=== PATIENT | male | born 1955 | race African-American/Black ===

== ENCOUNTER 2020-03-20 14:34 | Inpatient (IN) | payer MEDICARE ==
[~2020-03-20] VITALS: Ht 182.9 cm; Wt 128.4 kg
[2020-03-20] MEDS ORDERED: LISI-648 PO (14:43)
[2020-03-20] MEDS ORDERED: FURO-152 PO (14:43)
[2020-03-20] MEDS ORDERED: LIP40 PO (14:43)
[2020-03-20 15:53] LABS: BASOPHILS % 0.9 % (0.0-2.0); HEMATOCRIT. 41.1 % (42.0-52.0); HEMOGLOBIN. 13.5 g/dL (14.0-18.0); LYMPHOCYTES % 16.4 % (20.0-50.0); MEAN CORPUSCULAR HEMOGLOBIN 31.5 pg (28.0-32.0); MEAN CORPUSCULAR VOLUME 96.2 fL (80.0-94.0); MEAN PLATELET VOLUME 8.3 fl (7.4-10.4); MONOCYTES % 9.8 % (2.0-8.0); NEUTROPHILS % 71.9 % (40.0-76.0); PLATELET 203 x1000/uL (130-400); RED BLOOD CELL COUNT 4.28 mill/uL (4.7-6.1); RED CELL DISTRIBUTION WIDTH 13.7 % (11.6-14.6)
[2020-03-20 15:58] LABS: CHLORIDE 110 mEq/L (98-107)
[2020-03-20 16:07] LABS: ETHANOL BLOOD < 10 mg/dL
[2020-03-20] MEDS ORDERED: SODIUM CHLORIDE 0.9% 1,000 ML IV ONE (17:00)
[2020-03-20] MEDS ORDERED: LEVETIRACETAM 500MG PREMIX 100 ML IV ONE (17:30)
[2020-03-20 21:15] VITALS: BP 121/60
[2020-03-20 21:16] LABS: CLARITY URINE CLEAR (CLEAR); COLOR URINE YELLOW (YELLOW); KETONES URINE NEGATIVE (NEGATIVE); LEUKOCYTE ESTERASE URINE NEGATIVE (NEGATIVE); NITRITE URINE NEGATIVE (NEGATIVE); OCCULT BLOOD URINE NEGATIVE (NEGATIVE); PROTEIN URINE TRACE (NEGATIVE); SPECIFIC GRAVITY URINE 1.023 (1.005-1.030); UROBILINOGEN URINE 0.2 E.U./dL (0.2-1.0)
[2020-03-20] MEDS ORDERED: POTA-79 PO (21:22)
[2020-03-20 21:32] LABS: *AMPHETAMINES SCREEN URINE NEGATIVE (NEGATIVE); *BARBITURATES SCREEN URINE NEGATIVE (NEGATIVE)
[2020-03-20 21:33] LABS: *BENZODIAZEPINES SCREEN URINE NEGATIVE (NEGATIVE); *COCAINE SCREEN URINE NEGATIVE (NEGATIVE); CANNABINOID URINE SCREEN NEGATIVE (NEGATIVE); METHADONE URINE SCREEN NEGATIVE (NEGATIVE); OPIATES URINE SCREEN NEGATIVE (NEGATIVE); PHENCYCLIDINE URINE SCREEN NEGATIVE (NEGATIVE)
[2020-03-20 22:24] VITALS: BP 121/60
[2020-03-20 23:06] VITALS: BP 121/60
[2020-03-21] VITALS: BP 103/57
[2020-03-21] MEDS ORDERED: GUAIFENESIN 200MG/10ML SUGAR FREE UDC PO PRN (03:30)
[2020-03-21] MEDS ORDERED: MAGNESIUM/ALUMINUM HYDROXIDE/SIMETHICONE 30ML UDC PO PRN (03:30)
[2020-03-21] MEDS ORDERED: ONDANSETRON HCL 4MG/2ML INJ IV PRN (03:30)
[2020-03-21] MEDS ORDERED: CLONIDINE 0.1MG TABLET PO PRN (03:30)
[2020-03-21] MEDS ORDERED: LORAZEPAM 2MG/ML CPJ IV PRN (03:30)
[2020-03-21] MEDS ORDERED: NITROGLYCERIN 0.4MG TABLET SL SL PRN (03:30)
[2020-03-21] MEDS ORDERED: ACETAMINOPHEN 325MG TABLET PO PRN ×2 (03:30)
[2020-03-21] MEDS ORDERED: LEVETIRACETAM 500 MG in SODIUM CHLORIDE 0.9% 100 ML IV SCH (03:30)
[2020-03-21 04:00] VITALS: BP 117/64
[2020-03-21] MEDS: LEVETIRACETAM 500MG PREMIX 100 ML IV SCH ×2 (05:05→21:25)
[2020-03-21 07:45] VITALS: BP 125/77
[2020-03-21 08:14] LABS: CHLORIDE 110 mEq/L (98-107)
[2020-03-21 08:22] LABS: CREATINE KINASE 587 IU/L (39-308); LDL CHOLESTEROL 26 mg/dL (5-100)
[2020-03-21 08:23] LABS: CREATINE KINASE MB FRACTION 1.9 ng/mL (0.5-3.6)
[2020-03-21 08:24] LABS: HDL CHOLESTEROL 32 mg/dL (40-59)
[2020-03-21] MEDS: ZINC SULFATE 220 MG ( 50 ) CAPSULE PO SCH (09:19)
[2020-03-21] MEDS: ASCORBIC ACID 500 MG TABLET PO SCH ×2 (09:20→21:25)
[2020-03-21] MEDS: ASPIRIN 325MG EC TABLET PO SCH (09:20)
[2020-03-21] MEDS: ENOXAPARIN 30MG/0.3ML SYR SUBCUT SCH ×2 (09:20→21:26)
[2020-03-21] MEDS: FAMOTIDINE 20MG TABLET PO SCH ×2 (09:22→21:25)
[2020-03-21 12:00] VITALS: BP 120/76
[2020-03-21 15:41] VITALS: BP 113/78
[2020-03-21 16:28] LABS: CREATINE KINASE 485 IU/L (39-308)
[2020-03-21 16:29] LABS: CREATINE KINASE MB FRACTION 1.8 ng/mL (0.5-3.6)
[2020-03-21 20:00] VITALS: BP 120/63
[2020-03-21] MEDS: ATORVASTATIN CALCIUM 40MG TABLET PO SCH (21:25)
[2020-03-22 00:03] VITALS: BP 120/60
[2020-03-22 04:00] VITALS: BP 107/76
[2020-03-22 06:00] LABS: BASOPHILS % 0.4 % (0.0-2.0); EOSINOPHILS % 2.6 % (0.0-5.0); HEMATOCRIT. 37.8 % (42.0-52.0); HEMOGLOBIN. 12.4 g/dL (14.0-18.0); MEAN CORPUSCULAR HEMOGLOBIN 31.5 pg (28.0-32.0); MEAN CORPUSCULAR VOLUME 95.9 fL (80.0-94.0); MEAN PLATELET VOLUME 7.9 fl (7.4-10.4); MONOCYTES % 11.4 % (2.0-8.0); NEUTROPHILS % 53.6 % (40.0-76.0); PLATELET 195 x1000/uL (130-400); RED BLOOD CELL COUNT 3.94 mill/uL (4.7-6.1); RED CELL DISTRIBUTION WIDTH 13.9 % (11.6-14.6)
[2020-03-22 06:03] LABS: CHLORIDE 112 mEq/L (98-107)
[2020-03-22 06:12] LABS: PHOSPHORUS 2.3 mg/dL (2.5-4.9)
[2020-03-22 08:00] VITALS: BP 152/80
[2020-03-22] MEDS: ASCORBIC ACID 500 MG TABLET PO SCH ×2 (09:48→21:13)
[2020-03-22] MEDS: LEVETIRACETAM 500MG PREMIX 100 ML IV SCH ×2 (09:48→21:12)
[2020-03-22] MEDS: ASPIRIN 325MG EC TABLET PO SCH (09:49)
[2020-03-22] MEDS: ZINC SULFATE 220 MG ( 50 ) CAPSULE PO SCH (09:49)
[2020-03-22] MEDS: FAMOTIDINE 20MG TABLET PO SCH ×2 (09:49→21:12)
[2020-03-22] MEDS: ENOXAPARIN 30MG/0.3ML SYR SUBCUT SCH ×2 (09:50→21:13)
[2020-03-22 12:00] VITALS: BP 143/80
[2020-03-22 16:00] VITALS: BP 131/78
[2020-03-22 20:58] VITALS: BP 135/63
[2020-03-22] MEDS: ATORVASTATIN CALCIUM 40MG TABLET PO SCH (21:12)
[2020-03-23] VITALS: BP 126/72
[2020-03-23 03:58] VITALS: BP 118/74
[2020-03-23 08:00] VITALS: BP 135/80
[2020-03-23] MEDS: LEVETIRACETAM 500MG PREMIX 100 ML IV SCH (08:36)
[2020-03-23] MEDS: FAMOTIDINE 20MG TABLET PO SCH (08:37)
[2020-03-23] MEDS: ASCORBIC ACID 500 MG TABLET PO SCH (08:37)
[2020-03-23] MEDS: ENOXAPARIN 30MG/0.3ML SYR SUBCUT SCH (08:37)
[2020-03-23] MEDS: ZINC SULFATE 220 MG ( 50 ) CAPSULE PO SCH (08:37)
[2020-03-23] MEDS: ASPIRIN 325MG EC TABLET PO SCH (08:37)
[2020-03-23 12:00] VITALS: BP 132/82
[2020-03-23] MEDS ORDERED: KEPP500 MT (12:54)
[2020-03-23] MEDS ORDERED: FAMO-135 MT (12:55)
[2020-03-23] MEDS ORDERED: CLOP75TA4 PO (12:55)
[2020-03-23 12:59] VITALS: BP 135/80
== END 2020-03-23 14:45 | disposition home health service (06) | DRG 100 ==
LOC: ER 14:55 → EDBEDREQTM 17:34 → EDBEDREQ 17:34 → ENRESERV 20:04 → 6WST 21:12
PROVIDERS: ADMIT Internal Medicine; ATTEND Internal Medicine
DX: G40.89 Other seizures (principal); N17.0 Acute kidney failure with tubular necrosis; G92 Toxic encephalopathy; E44.0 Moderate protein-calorie malnutrition; Z86.73 Personal history of transient ischemic attack (TIA), and cerebral infarction without residual deficits; I10 Essential (primary) hypertension; E66.9 Obesity, unspecified; E78.00 Pure hypercholesterolemia, unspecified; Z68.38 Body mass index [BMI] 38.0-38.9, adult
CPT/HCPCS: 36415; 70551; 71045; 80053; 80061; 80305; 80320; 81003; 82550; 82553; 83036; 83735; 84100; 84484; 85025; 93005; 93306; 93970; 96365; 97116; 97162; 97166; 99285; J1650; J1953; J7030; G0480

== ENCOUNTER 2020-07-30 01:18 | Emergency (ER) | payer MEDICARE, OTHER ==
[~2020-07-30] VITALS: Ht 195.6 cm; Wt 141.0 kg
[~2020-07-30 01:18] MED LIST: CLOP75TA4 PO; FAMO-135 MT; FURO-152 PO; KEPP500 MT; LIP40 PO; LISI-648 PO; POTA-79 PO
[2020-07-30] MEDS ORDERED: LEVETIRACETAM 1000MG PREMIX 100 ML IV ONE (01:45)
[2020-07-30 01:57] LABS: BASOPHILS % 0.4 % (0.0-2.0); EOSINOPHILS % 1.8 % (0.0-5.0); HEMATOCRIT. 42.8 % (42.0-52.0); HEMOGLOBIN. 14.4 g/dL (14.0-18.0); LYMPHOCYTES % 21.2 % (20.0-50.0); MEAN CORPUSCULAR HEMOGLOBIN 31.9 pg (28.0-32.0); MEAN CORPUSCULAR VOLUME 94.7 fL (80.0-94.0); MEAN PLATELET VOLUME 7.8 fl (7.4-10.4); MONOCYTES % 8.8 % (2.0-8.0); NEUTROPHILS % 67.8 % (40.0-76.0); PLATELET 166 x1000/uL (130-400); RED BLOOD CELL COUNT 4.52 mill/uL (4.7-6.1); RED CELL DISTRIBUTION WIDTH 14.3 % (11.6-14.6)
[2020-07-30 02:02] LABS: CHLORIDE 108 mEq/L (98-107)
[2020-07-30 02:07] LABS: ETHANOL BLOOD < 10 mg/dL
[2020-07-30 02:12] LABS: CARBAMAZEPINE < 0.5 ug/mL (4-12)
[2020-07-30 02:15] LABS: PHENOBARBITAL < 2.1 ug/mL (15.0-40.0); VALPROIC ACID < 3.0 ug/mL (50-100)
[2020-07-30] MEDS ORDERED: ASPIRIN 325MG EC TABLET PO ONE (03:00)
[2020-07-30 03:34] LABS: CLARITY URINE CLEAR (CLEAR); COLOR URINE YELLOW (YELLOW); KETONES URINE NEGATIVE (NEGATIVE); LEUKOCYTE ESTERASE URINE NEGATIVE (NEGATIVE); NITRITE URINE NEGATIVE (NEGATIVE); OCCULT BLOOD URINE NEGATIVE (NEGATIVE); PROTEIN URINE 2+ (NEGATIVE); SPECIFIC GRAVITY URINE 1.023 (1.005-1.030); UROBILINOGEN URINE 0.2 E.U./dL (0.2-1.0)
[2020-07-30 03:43] LABS: *BARBITURATES SCREEN URINE NEGATIVE (NEGATIVE); *BENZODIAZEPINES SCREEN URINE NEGATIVE (NEGATIVE)
[2020-07-30 03:44] LABS: *AMPHETAMINES SCREEN URINE NEGATIVE (NEGATIVE); *COCAINE SCREEN URINE PRESUMTIVE POSITIVE (NEGATIVE); CANNABINOID URINE SCREEN NEGATIVE (NEGATIVE); METHADONE URINE SCREEN NEGATIVE (NEGATIVE); OPIATES URINE SCREEN NEGATIVE (NEGATIVE); PHENCYCLIDINE URINE SCREEN NEGATIVE (NEGATIVE)
[2020-07-30 04:55] VITALS: BP 118/71
== END 2020-07-30 05:03 | disposition short-term general hospital (02) ==
LOC: ER 01:18
DX: R56.9 Unspecified convulsions (principal); I63.9 Cerebral infarction, unspecified; F14.10 Cocaine abuse, uncomplicated; I10 Essential (primary) hypertension; Z79.899 Other long term (current) drug therapy
CPT/HCPCS: 36415; 70450; 80053; 80156; 80165; 80184; 80185; 80305; 80320; 81003; 82962; 85025; 93005; 96365; 99285; J1953; G0480

== ENCOUNTER 2020-08-06 11:09 | Emergency (ER) | payer OTHER ==
[~2020-08-06] VITALS: Ht 193 cm; Wt 136.0 kg
[2020-08-06] MEDS ORDERED: SODIUM CHLORIDE 0.9% 1,000 ML IV ONE (13:30)
[2020-08-06] MEDS ORDERED: LEVETIRACETAM 500MG PREMIX 100 ML IV ONE (13:30)
[2020-08-06 14:24] LABS: BASOPHILS % 0.3 % (0.0-2.0); EOSINOPHILS % 0.8 % (0.0-5.0); HEMATOCRIT. 41.3 % (42.0-52.0); HEMOGLOBIN. 13.8 g/dL (14.0-18.0); LYMPHOCYTES % 17.2 % (20.0-50.0); MEAN CORPUSCULAR HEMOGLOBIN 31.8 pg (28.0-32.0); MEAN CORPUSCULAR VOLUME 95.5 fL (80.0-94.0); MEAN PLATELET VOLUME 7.9 fl (7.4-10.4); MONOCYTES % 9.2 % (2.0-8.0); NEUTROPHILS % 72.5 % (40.0-76.0); PLATELET 152 x1000/uL (130-400); RED BLOOD CELL COUNT 4.32 mill/uL (4.7-6.1); RED CELL DISTRIBUTION WIDTH 14.4 % (11.6-14.6)
[2020-08-06 14:31] LABS: CHLORIDE 108 mEq/L (98-107)
[2020-08-06 14:37] LABS: ETHANOL BLOOD < 10 mg/dL
[2020-08-06 14:44] LABS: CARBAMAZEPINE < 0.5 ug/mL (4-12); PHENOBARBITAL < 2.1 ug/mL (15.0-40.0); VALPROIC ACID < 3.0 ug/mL (50-100)
[2020-08-06 16:00] VITALS: BP 128/66
== END 2020-08-06 17:42 | disposition home or self-care (01) ==
LOC: ER 11:18
DX: R56.9 Unspecified convulsions (principal); I10 Essential (primary) hypertension; Z86.73 Personal history of transient ischemic attack (TIA), and cerebral infarction without residual deficits; Z79.899 Other long term (current) drug therapy
CPT/HCPCS: 36415; 71045; 80053; 80156; 80165; 80184; 80185; 80320; 85025; 93005; 93970; 96365; 96366; 99285; J1953; J7030; G0480

== ENCOUNTER 2020-09-07 11:20 | Emergency (ER) | payer OTHER ==
[~2020-09-07] VITALS: Ht 188 cm; Wt 127.0 kg
[~2020-09-07 11:20] MED LIST changes: +CLOP-31 PO; -CLOP75TA4 PO
[2020-09-07 11:22] VITALS: BP 124/64
[2020-09-07] MEDS ORDERED: LEVETIRACETAM 500MG TABLET PO NR (12:00)
[2020-09-07 12:49] LABS: BASOPHILS % 0.5 % (0.0-2.0); EOSINOPHILS % 1.7 % (0.0-5.0); HEMOGLOBIN. 13.5 g/dL (14.0-18.0); LYMPHOCYTES % 24.1 % (20.0-50.0); MEAN CORPUSCULAR HEMOGLOBIN 31.3 pg (28.0-32.0); MEAN CORPUSCULAR VOLUME 94.9 fL (80.0-94.0); MEAN PLATELET VOLUME 7.6 fl (7.4-10.4); MONOCYTES % 11.6 % (2.0-8.0); NEUTROPHILS % 62.1 % (40.0-76.0); PLATELET 157 x1000/uL (130-400); RED BLOOD CELL COUNT 4.32 mill/uL (4.7-6.1); RED CELL DISTRIBUTION WIDTH 14.1 % (11.6-14.6)
[2020-09-07 12:51] LABS: CLARITY URINE CLEAR (CLEAR); COLOR URINE YELLOW (YELLOW); KETONES URINE NEGATIVE (NEGATIVE); LEUKOCYTE ESTERASE URINE NEGATIVE (NEGATIVE); NITRITE URINE NEGATIVE (NEGATIVE); OCCULT BLOOD URINE NEGATIVE (NEGATIVE); PROTEIN URINE NEGATIVE (NEGATIVE); SPECIFIC GRAVITY URINE 1.021 (1.005-1.030); UROBILINOGEN URINE 0.2 E.U./dL (0.2-1.0)
[2020-09-07 12:55] LABS: CHLORIDE 110 mEq/L (98-107)
[2020-09-07 12:58] LABS: ETHANOL BLOOD < 10 mg/dL
[2020-09-07 13:15] LABS: *AMPHETAMINES SCREEN URINE NEGATIVE (NEGATIVE); *BARBITURATES SCREEN URINE NEGATIVE (NEGATIVE); *BENZODIAZEPINES SCREEN URINE NEGATIVE (NEGATIVE); *COCAINE SCREEN URINE NEGATIVE (NEGATIVE)
[2020-09-07 13:16] LABS: METHADONE URINE SCREEN NEGATIVE (NEGATIVE); OPIATES URINE SCREEN NEGATIVE (NEGATIVE); PHENCYCLIDINE URINE SCREEN NEGATIVE (NEGATIVE)
[2020-09-07 13:18] LABS: CANNABINOID URINE SCREEN NEGATIVE (NEGATIVE)
== END 2020-09-07 15:46 | disposition home or self-care (01) ==
LOC: ER 11:20
DX: G40.909 Epilepsy, unspecified, not intractable, without status epilepticus (principal)
CPT/HCPCS: 36415; 71045; 80053; 80305; 80320; 81003; 85025; 93005; 99285; G0480

== ENCOUNTER 2020-10-08 09:17 | Emergency (ER) | payer OTHER ==
[~2020-10-08] VITALS: Ht 190.5 cm; Wt 131.0 kg
[2020-10-08] MEDS ORDERED: SODIUM CHLORIDE 0.9% 1,000 ML IV ONE (10:15)
[2020-10-08 10:24] LABS: BASOPHILS % 0.8 % (0.0-2.0); HEMATOCRIT. 43.1 % (42.0-52.0); HEMOGLOBIN. 14.2 g/dL (14.0-18.0); LYMPHOCYTES % 20.9 % (20.0-50.0); MEAN CORPUSCULAR HEMOGLOBIN 31.3 pg (28.0-32.0); MEAN CORPUSCULAR VOLUME 94.7 fL (80.0-94.0); MEAN PLATELET VOLUME 7.6 fl (7.4-10.4); MONOCYTES % 11.6 % (2.0-8.0); NEUTROPHILS % 65.7 % (40.0-76.0); PLATELET 184 x1000/uL (130-400); RED BLOOD CELL COUNT 4.55 mill/uL (4.7-6.1); RED CELL DISTRIBUTION WIDTH 13.8 % (11.6-14.6)
[2020-10-08 10:30] LABS: CHLORIDE 108 mEq/L (98-107)
[2020-10-08 10:34] LABS: ETHANOL BLOOD < 10 mg/dL
[2020-10-08 10:40] LABS: CARBAMAZEPINE < 0.5 ug/mL (4-12); PHENOBARBITAL < 2.1 ug/mL (15.0-40.0); VALPROIC ACID < 3.0 ug/mL (50-100)
[2020-10-08 11:01] LABS: CLARITY URINE CLEAR (CLEAR); COLOR URINE YELLOW (YELLOW); KETONES URINE NEGATIVE (NEGATIVE); LEUKOCYTE ESTERASE URINE NEGATIVE (NEGATIVE); NITRITE URINE NEGATIVE (NEGATIVE); OCCULT BLOOD URINE NEGATIVE (NEGATIVE); PROTEIN URINE NEGATIVE (NEGATIVE); SPECIFIC GRAVITY URINE 1.013 (1.005-1.030); UROBILINOGEN URINE 0.2 E.U./dL (0.2-1.0)
[2020-10-08] MEDS ORDERED: LEVETIRACETAM 500MG PREMIX 100 ML IV ONE (11:15)
[2020-10-08 11:24] LABS: OPIATES URINE SCREEN NEGATIVE (NEGATIVE)
[2020-10-08 11:25] LABS: *AMPHETAMINES SCREEN URINE NEGATIVE (NEGATIVE); *BARBITURATES SCREEN URINE NEGATIVE (NEGATIVE); *BENZODIAZEPINES SCREEN URINE NEGATIVE (NEGATIVE); *COCAINE SCREEN URINE PRESUMTIVE POSITIVE (NEGATIVE); CANNABINOID URINE SCREEN NEGATIVE (NEGATIVE); METHADONE URINE SCREEN NEGATIVE (NEGATIVE); PHENCYCLIDINE URINE SCREEN NEGATIVE (NEGATIVE)
[2020-10-08 11:30] VITALS: BP 118/72
== END 2020-10-08 12:42 | disposition home or self-care (01) ==
LOC: ER 09:40
DX: R56.9 Unspecified convulsions (principal); F14.10 Cocaine abuse, uncomplicated; N28.9 Disorder of kidney and ureter, unspecified; E11.9 Type 2 diabetes mellitus without complications; I10 Essential (primary) hypertension; Z86.73 Personal history of transient ischemic attack (TIA), and cerebral infarction without residual deficits; Z79.899 Other long term (current) drug therapy
CPT/HCPCS: 36415; 70450; 71045; 80053; 80156; 80165; 80184; 80185; 80305; 80320; 81003; 85025; 96365; 99285; J1953; J7030; G0480

== ENCOUNTER 2020-10-09 14:30 | Emergency (ER) | payer OTHER ==
[~2020-10-09] VITALS: Ht 195.6 cm; Wt 100.0 kg
[2020-10-09 15:16] LABS: BASOPHILS % 0.7 % (0.0-2.0); EOSINOPHILS % 1.2 % (0.0-5.0); HEMATOCRIT. 41.9 % (42.0-52.0); HEMOGLOBIN. 13.7 g/dL (14.0-18.0); LYMPHOCYTES % 30.5 % (20.0-50.0); MEAN CORPUSCULAR HEMOGLOBIN 31.1 pg (28.0-32.0); MEAN CORPUSCULAR VOLUME 95.2 fL (80.0-94.0); MEAN PLATELET VOLUME 8.1 fl (7.4-10.4); MONOCYTES % 11.7 % (2.0-8.0); NEUTROPHILS % 55.9 % (40.0-76.0); PLATELET 176 x1000/uL (130-400); RED CELL DISTRIBUTION WIDTH 13.8 % (11.6-14.6)
[2020-10-09 15:28] LABS: CHLORIDE 109 mEq/L (98-107)
[2020-10-09] MEDS ORDERED: LEVETIRACETAM 500MG PREMIX 100 ML IV ONE (15:30)
[2020-10-09] MEDS ORDERED: LORAZEPAM 2MG/ML CPJ IV ONE (15:30)
[2020-10-09 15:32] LABS: ETHANOL BLOOD < 10 mg/dL
[2020-10-09 18:19] VITALS: BP 131/71
== END 2020-10-09 18:30 | disposition home or self-care (01) ==
LOC: ER 14:30 → CANBEDREQ 10-10 09:14
DX: G40.909 Epilepsy, unspecified, not intractable, without status epilepticus (principal); G93.89 Other specified disorders of brain; I10 Essential (primary) hypertension; E11.9 Type 2 diabetes mellitus without complications; Z86.73 Personal history of transient ischemic attack (TIA), and cerebral infarction without residual deficits; F14.10 Cocaine abuse, uncomplicated; Z79.899 Other long term (current) drug therapy
CPT/HCPCS: 36415; 70450; 71045; 80053; 80320; 82140; 82542; 83605; 84443; 85025; 93005; 96365; 99285; J1953; G0480

== ENCOUNTER 2020-12-20 14:44 | Emergency (ER) | payer OTHER ==
[~2020-12-20] VITALS: Ht 172.7 cm; Wt 114.0 kg
[2020-12-20 15:58] LABS: BASOPHILS % 0.4 % (0.0-2.0); EOSINOPHILS % 0.7 % (0.0-5.0); HEMATOCRIT. 39.2 % (42.0-52.0); LYMPHOCYTES % 15.6 % (20.0-50.0); MEAN CORPUSCULAR HEMOGLOBIN 31.6 pg (28.0-32.0); MEAN CORPUSCULAR VOLUME 95.1 fL (80.0-94.0); MEAN PLATELET VOLUME 7.9 fl (7.4-10.4); MONOCYTES % 9.7 % (2.0-8.0); NEUTROPHILS % 73.6 % (40.0-76.0); PLATELET 189 x1000/uL (130-400); RED BLOOD CELL COUNT 4.13 mill/uL (4.7-6.1)
[2020-12-20 16:03] LABS: CHLORIDE 107 mEq/L (98-107)
[2020-12-20 16:07] LABS: ETHANOL BLOOD < 10 mg/dL
[2020-12-20] MEDS ORDERED: LEVETIRACETAM 500MG/5ML CUP PO ONE (17:30)
[2020-12-20 17:56] VITALS: BP 137/80
== END 2020-12-20 18:34 | disposition home or self-care (01) ==
LOC: ER 14:44
DX: G40.909 Epilepsy, unspecified, not intractable, without status epilepticus (principal); I10 Essential (primary) hypertension; E11.9 Type 2 diabetes mellitus without complications; F14.10 Cocaine abuse, uncomplicated; Z86.73 Personal history of transient ischemic attack (TIA), and cerebral infarction without residual deficits
CPT/HCPCS: 36415; 71045; 80053; 80320; 85025; 93005; 99285; G0480

== ENCOUNTER 2020-12-20 20:26 | Emergency (ER) | payer OTHER ==
[~2020-12-20] VITALS: Ht 185.4 cm; Wt 125.0 kg
[2020-12-20] MEDS ORDERED: LORAZEPAM 2MG/ML CPJ IV ONE (20:45)
[2020-12-20] MEDS ORDERED: SODIUM CHLORIDE 0.9% 1,000 ML IV ONE (20:45)
[2020-12-20] MEDS ORDERED: LEVETIRACETAM 500MG PREMIX 100 ML IV ONE (20:45)
[2020-12-20 23:08] VITALS: BP 159/93
== END 2020-12-20 23:58 | disposition short-term general hospital (02) ==
LOC: ER 20:26
DX: G40.909 Epilepsy, unspecified, not intractable, without status epilepticus (principal); E11.9 Type 2 diabetes mellitus without complications; I10 Essential (primary) hypertension; F14.10 Cocaine abuse, uncomplicated; Z86.73 Personal history of transient ischemic attack (TIA), and cerebral infarction without residual deficits
CPT/HCPCS: 82962; 93005; 96365; 96375; 99285; J1953; J2060; J7030

== ENCOUNTER 2020-12-27 16:41 | Emergency (ER) | payer OTHER ==
[~2020-12-27] VITALS: Ht 188 cm; Wt 150.0 kg
[2020-12-27 17:45] LABS: BASOPHILS % 0.4 % (0.0-2.0); EOSINOPHILS % 0.3 % (0.0-5.0); HEMATOCRIT. 42.5 % (42.0-52.0); HEMOGLOBIN. 14.3 g/dL (14.0-18.0); MEAN CORPUSCULAR HEMOGLOBIN 31.6 pg (28.0-32.0); MONOCYTES % 9.1 % (2.0-8.0); NEUTROPHILS % 69.2 % (40.0-76.0); PLATELET 222 x1000/uL (130-400); RED BLOOD CELL COUNT 4.52 mill/uL (4.7-6.1); RED CELL DISTRIBUTION WIDTH 14.9 % (11.6-14.6)
[2020-12-27] MEDS ORDERED: LEVETIRACETAM 500MG PREMIX 100 ML IV ONE (17:45)
[2020-12-27] MEDS ORDERED: SODIUM CHLORIDE 0.9% 1,000 ML IV ONE (17:45)
[2020-12-27 17:47] LABS: CHLORIDE 106 mEq/L (98-107)
[2020-12-27 18:16] LABS: CARBAMAZEPINE < 0.5 ug/mL (4-12); PHENOBARBITAL < 2.1 ug/mL (15.0-40.0); VALPROIC ACID < 3.0 ug/mL (50-100)
[2020-12-27 22:27] VITALS: BP 124/72
== END 2020-12-27 22:28 | disposition home or self-care (01) ==
LOC: ER 16:41
DX: G40.909 Epilepsy, unspecified, not intractable, without status epilepticus (principal); E11.9 Type 2 diabetes mellitus without complications; I10 Essential (primary) hypertension; Z86.73 Personal history of transient ischemic attack (TIA), and cerebral infarction without residual deficits
CPT/HCPCS: 36415; 80053; 80156; 80165; 80184; 80185; 85025; 93005; 96374; 99284; J1953; J7030

== ENCOUNTER 2021-01-12 16:31 | Emergency (ER) | payer OTHER ==
[~2021-01-12] VITALS: Ht 182.9 cm; Wt 145.0 kg
[2021-01-12 17:31] LABS: CLARITY URINE CLEAR (CLEAR); COLOR URINE YELLOW (YELLOW); KETONES URINE NEGATIVE (NEGATIVE); LEUKOCYTE ESTERASE URINE NEGATIVE (NEGATIVE); NITRITE URINE NEGATIVE (NEGATIVE); OCCULT BLOOD URINE NEGATIVE (NEGATIVE); PROTEIN URINE 2+ (NEGATIVE); SPECIFIC GRAVITY URINE 1.022 (1.005-1.030); UROBILINOGEN URINE 0.2 E.U./dL (0.2-1.0)
[2021-01-12 17:32] LABS: BASOPHILS % 0.2 % (0.0-2.0); EOSINOPHILS % 0.2 % (0.0-5.0); HEMATOCRIT. 41.4 % (42.0-52.0); HEMOGLOBIN. 13.9 g/dL (14.0-18.0); LYMPHOCYTES % 16.3 % (20.0-50.0); MEAN CORPUSCULAR HEMOGLOBIN 31.5 pg (28.0-32.0); MEAN CORPUSCULAR VOLUME 93.9 fL (80.0-94.0); MEAN PLATELET VOLUME 8.3 fl (7.4-10.4); MONOCYTES % 9.6 % (2.0-8.0); NEUTROPHILS % 73.7 % (40.0-76.0); PLATELET 176 x1000/uL (130-400); RED BLOOD CELL COUNT 4.41 mill/uL (4.7-6.1); RED CELL DISTRIBUTION WIDTH 14.8 % (11.6-14.6)
[2021-01-12 17:38] LABS: CHLORIDE 108 mEq/L (98-107)
[2021-01-12 17:42] LABS: *AMPHETAMINES SCREEN URINE NEGATIVE (NEGATIVE); *BARBITURATES SCREEN URINE NEGATIVE (NEGATIVE); *BENZODIAZEPINES SCREEN URINE NEGATIVE (NEGATIVE); *COCAINE SCREEN URINE PRESUMTIVE POSITIVE (NEGATIVE); METHADONE URINE SCREEN NEGATIVE (NEGATIVE)
[2021-01-12 17:43] LABS: CANNABINOID URINE SCREEN NEGATIVE (NEGATIVE); OPIATES URINE SCREEN NEGATIVE (NEGATIVE); PHENCYCLIDINE URINE SCREEN NEGATIVE (NEGATIVE)
[2021-01-12 17:43] LABS: ETHANOL BLOOD < 10 mg/dL
[2021-01-12 21:38] VITALS: BP 118/74
== END 2021-01-12 21:39 | disposition home or self-care (01) ==
LOC: ER 16:31
DX: R56.9 Unspecified convulsions (principal); E11.9 Type 2 diabetes mellitus without complications; I10 Essential (primary) hypertension; Z86.73 Personal history of transient ischemic attack (TIA), and cerebral infarction without residual deficits; Z79.899 Other long term (current) drug therapy
CPT/HCPCS: 36415; 80053; 80305; 80320; 81003; 82962; 85025; 99283; G0480

== ENCOUNTER 2021-01-23 14:01 | Emergency (ER) | payer OTHER ==
[~2021-01-23] VITALS: Ht 177.8 cm; Wt 113.0 kg
[2021-01-23 15:00] LABS: BASOPHILS % 0.5 % (0.0-2.0); EOSINOPHILS % 1.7 % (0.0-5.0); HEMATOCRIT. 36.4 % (42.0-52.0); HEMOGLOBIN. 12.4 g/dL (14.0-18.0); LYMPHOCYTES % 21.2 % (20.0-50.0); MEAN CORPUSCULAR HEMOGLOBIN 31.9 pg (28.0-32.0); MEAN CORPUSCULAR VOLUME 93.6 fL (80.0-94.0); MONOCYTES % 11.4 % (2.0-8.0); NEUTROPHILS % 65.2 % (40.0-76.0); PLATELET 177 x1000/uL (130-400); RED BLOOD CELL COUNT 3.88 mill/uL (4.7-6.1); RED CELL DISTRIBUTION WIDTH 14.8 % (11.6-14.6)
[2021-01-23] MEDS ORDERED: LEVETIRACETAM 500MG PREMIX 100 ML IV ONE (15:00)
[2021-01-23 15:10] LABS: CHLORIDE 107 mEq/L (98-107)
[2021-01-23 15:18] LABS: VALPROIC ACID <3.0 ug/mL ug/mL (50-100)
[2021-01-23 15:27] LABS: CARBAMAZEPINE < 0.5 ug/mL (4-12); PHENOBARBITAL < 2.1 ug/mL (15.0-40.0)
[2021-01-23 20:00] VITALS: BP 139/80
== END 2021-01-23 20:25 | disposition home or self-care (01) ==
LOC: ER 14:01
DX: R56.9 Unspecified convulsions (principal); R60.9 Edema, unspecified; E11.9 Type 2 diabetes mellitus without complications; I10 Essential (primary) hypertension; Z79.899 Other long term (current) drug therapy; Z86.73 Personal history of transient ischemic attack (TIA), and cerebral infarction without residual deficits
CPT/HCPCS: 36415; 71045; 80053; 80156; 80165; 80184; 80185; 83880; 84484; 85025; 85610; 85730; 93005; 93970; 96365; 99285; J1953

== ENCOUNTER 2021-07-26 14:00 | Emergency (ER) | payer OTHER ==
[~2021-07-26] VITALS: Ht 188 cm; Wt 117.0 kg
[2021-07-26] MEDS ORDERED: LEVETIRACETAM 1000MG PREMIX 100 ML IV ONE (14:30)
[2021-07-26] MEDS ORDERED: LEVETIRACETAM 500MG PREMIX 100 ML IV NR ×2 (15:00→15:30)
[2021-07-26 15:04] LABS: BASOPHILS % 0.3 % (0.0-2.0); EOSINOPHILS % 1.2 % (0.0-5.0); HEMATOCRIT. 42.6 % (42.0-52.0); HEMOGLOBIN. 13.8 g/dL (14.0-18.0); LYMPHOCYTES % 23.1 % (20.0-50.0); MEAN CORPUSCULAR HEMOGLOBIN 30.8 pg (28.0-32.0); MEAN CORPUSCULAR VOLUME 95.2 fL (80.0-94.0); MEAN PLATELET VOLUME 7.7 fl (7.4-10.4); MONOCYTES % 10.1 % (2.0-8.0); NEUTROPHILS % 65.3 % (40.0-76.0); PLATELET 185 x1000/uL (130-400); RED BLOOD CELL COUNT 4.48 mill/uL (4.7-6.1); RED CELL DISTRIBUTION WIDTH 14.9 % (11.6-14.6)
[2021-07-26 15:11] LABS: CHLORIDE 105 mEq/L (98-107)
[2021-07-26 15:17] LABS: ETHANOL BLOOD < 10 mg/dL
[2021-07-26 20:00] VITALS: BP 105/36
== END 2021-07-26 20:33 | disposition home or self-care (01) ==
LOC: ER 14:00
DX: G40.909 Epilepsy, unspecified, not intractable, without status epilepticus (principal); E11.9 Type 2 diabetes mellitus without complications; I11.0 Hypertensive heart disease with heart failure; I50.9 Heart failure, unspecified; Z86.73 Personal history of transient ischemic attack (TIA), and cerebral infarction without residual deficits
CPT/HCPCS: 36415; 80053; 80320; 85025; 93005; 96365; 96368; 99285; J1953; G0480